=== PATIENT | female | born 1980 | race Caucasian/White ===

== ENCOUNTER 2019-10-22 08:31 | Emergency (ER) | payer BC, MEDICAID ==
[~2019-10-22] VITALS: Ht 165 cm; Wt 138.4 kg
[~2019-10-22 08:31] MED LIST: AMOX500C2 PO; GFCD10B PO; NAPR-243 PO; OMEP10CA2
[2019-10-22] MEDS ORDERED: HYDR-3820 (08:52)
[2019-10-22 08:59] LABS: BILIRUBIN,URINE NEGATIVE (NEGATIVE); CLARITY,URINE CLEAR; COLOR,URINE YELLOW; GLUCOSE, URINE (UA) NEGATIVE (NEGATIVE); KETONES,URINE NEGATIVE (NEGATIVE); LEUKOCYTE ESTERASE ,URINE NEGATIVE (NEGATIVE); NITRITE,URINE NEGATIVE (NEGATIVE); PROTEIN,URINE NEGATIVE (NEGATIVE)
[2019-10-22 09:22] LABS: BACTERIA,URINE FEW /HPF; RBC,URINE 0-2 /HPF
--- NOTE | 2019-10-22 09:25 | ED Abdominal Pain ---
General Chief Complaint: Abdominal/GI Problems Stated Complaint: LOWER L SIDE PAIN Nursing Triage Note: LEFT UPPER ABD PAIN WITH NAUSEA STARTING YESTERDAY. Sepsis Screen: No Definite Risk Source of Information: Patient Exam Limitations: No Limitations History of Present Illness Date Seen by Provider: Oct 22, 2019 Time Seen by Provider: 08:33 Initial Comments This 38-year-old woman presents to the emergency room with complaints of left upper quadrant and flank pain. This is associated with nausea. These symptoms began fairly suddenly yesterday. Pain is worse with deep breathing and coughing. She is tender to palpation. She has tried applying heat and ice without benefit. She took Tylenol, ibuprofen, and Flexeril which were not very helpful. She denies any constipation or diarrhea. Last bowel movement was last night and was normal. Last menstrual period was October 01. She has had upper respiratory symptoms including cough, congestion, and sinus symptoms since mid August. She completed a course of azithromycin but still has symptoms. She is afebrile. She denies any urinary changes. Allergies and Home Medications Allergies Coded Allergies: No Known Allergies (Unverified Allergy, Mild, 08/30/09) Patient Home Medication List Home Medication List Reviewed: Yes Review of Systems Review of Systems Constitutional: no symptoms reported EENTM: No Symptoms Reported Respiratory: See HPI Cardiovascular: No Symptoms Reported Gastrointestinal: See HPI Genitourinary: No Symptoms Reported Musculoskeletal: no symptoms reported Skin: no symptoms reported Psychiatric/Neurological: No Symptoms Reported Endocrine: No Symptoms Reported Hematologic/Lymphatic: No Symptoms Reported Past Ulpbayf-Qbdpmj-Nllzzj Hx Past Med/Social Hx: Reviewed Nursing Past Med/Soc Hx Patient Social History Alcohol Use: Denies Use Recreational Drug Use: No Smoking Status: Never a Smoker Recent Foreign Travel: No Contact w/Someone Who Travel: No Recent Infectious Disease Expo: No Recent Hopitalizations: No Seasonal Allergies Seasonal Allergies: No Past Medical History Surgeries: Yes Section, Gallbladder, Orthopedic Respiratory: No Cardiac: No Neurological: No : No Last Menstrual Period: Oct 01, 2019 Genitourinary: No Gastrointestinal: No Musculoskeletal: No Endocrine: No HEENT: No Cancer: No Psychosocial: No Integumentary: No Physical Exam Vital Signs Vital Signs - First Documented 10/22/19 08:33 Temp 36.5 Pulse 89 Resp 16 B/P (MAP) 148/106 (120) Pulse Ox 99 O2 Delivery Room Air Capillary Refill : Less Than 3 Seconds Height/Weight/BMI Height: '" Weight: lbs. oz. 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, no motor/sensory deficits, alert, normal mood/affect, oriented x 3 Skin: normal color, warm/dry Progress/Results/Core Measures Results/Orders Lab Results Laboratory Tests Test 10/22/19 08:50 10/22/19 10:20 Range/Units Urine Color YELLOW Urine Clarity CLEAR Urine pH 6.0 5-9 Urine Specific [place] 1.025 H 1.016-1.022 Urine Protein NEGATIVE NEGATIVE Urine Glucose (UA) NEGATIVE NEGATIVE Urine Ketones NEGATIVE NEGATIVE Urine Nitrite NEGATIVE NEGATIVE Urine Bilirubin NEGATIVE NEGATIVE Urine Urobilinogen 0.2 < = 1.0 MG/DL Urine Leukocyte Esterase NEGATIVE NEGATIVE Urine RBC (Auto) TRACE-I NEGATIVE Urine RBC 0-2 /HPF Urine WBC NONE /HPF Urine Squamous Epithelial Cells 10-25 H /HPF Urine Crystals NONE /LPF Urine Bacteria FEW H /HPF Urine Casts NONE /LPF Urine Mucus SMALL H /LPF Urine Culture Indicated NO White Blood Count 12.7 H 4.3-11.0 10^3/uL Red Blood Count 4.85 4.35-5.85 10^6/uL Hemoglobin 12.4 11.5-16.0 G/DL Hematocrit 39 35-52 % Mean Corpuscular Volume 81 80-99 FL Mean Corpuscular Hemoglobin 26 25-34 PG Mean Corpuscular Hemoglobin Concent 32 32-36 G/DL Red Cell Distribution Width 18.1 H 10.0-14.5 % Platelet Count 368 130-400 10^3/uL Mean Platelet Volume 9.8 7.4-10.4 FL Neutrophils (%) (Auto) 74 42-75 % Lymphocytes (%) (Auto) 17 12-44 % Monocytes (%) (Auto) 7 0-12 % Eosinophils (%) (Auto) 2 0-10 % Basophils (%) (Auto) 1 0-10 % Neutrophils # (Auto) 9.4 H 1.8-7.8 X 10^3 Lymphocytes # (Auto) 2.1 1.0-4.0 X 10^3 Monocytes # (Auto) 0.9 0.0-1.0 X 10^3 Eosinophils # (Auto) 0.2 0.0-0.3 10^3/uL Basophils # (Auto) 0.1 0.0-0.1 10^3/uL Sodium Level 139 135-145 MMOL/L Potassium Level 4.4 3.6-5.0 MMOL/L Chloride Level 107 98-107 MMOL/L Carbon Dioxide Level 21 21-32 MMOL/L Anion Gap 11 5-14 MMOL/L Blood Urea Nitrogen 9 7-18 MG/DL Creatinine 0.74 0.60-1.30 MG/DL Estimat Glomerular Filtration Rate > 60 BUN/Creatinine Ratio 12 Glucose Level 158 H 70-105 MG/DL Calcium Level 9.1 8.5-10.1 MG/DL Corrected Calcium 9.1 8.5-10.1 MG/DL Total Bilirubin 0.3 0.1-1.0 MG/DL Aspartate Amino Transf (AST/SGOT) 12 5-34 U/L Alanine Aminotransferase (ALT/SGPT) 19 0-55 U/L Alkaline Phosphatase 59 40-136 U/L C-Reactive Protein High Sensitivity 0.84 H 0.00-0.50 MG/DL Total Protein 7.2 6.4-8.2 GM/DL Albumin 4.0 3.2-4.5 GM/DL Lipase 18 8-78 U/L My Orders Orders - LOLIS TEJADA MD Ua Culture If Indicated (10/22/19 08:33) Ondansetron Oral Dissolve Tab (Zofran (10/22/19 09:30) Lidocaine 2% Viscous 15 Ml (Xylocaine Vi (10/22/19 09:30) Antacid Suspension (Mylanta Suspension (10/22/19 09:30) Chest Pa/Lat (2 View) (10/22/19 10:09) Cbc With Automated Diff (10/22/19 10:09) Comprehensive Metabolic Panel (10/22/19 10:09) Hs C Reactive Protein (10/22/19 10:09) Lipase (10/22/19 10:09) Ed Iv/Invasive Line Start (10/22/19 10:09) Ketorolac Injection (Toradol Injection) (10/22/19 10:30) Medications Given in ED Current Medications Medications Dose Ordered Sig/Stan Route Start Time Stop Time Status Last Admin Dose Admin Al Hydrox/Mg Hydrox/Simethicone 30 ml ONCE ONCE PO 10/22/19 09:30 10/22/19 09:31 DC 10/22/19 09:46 30 ML Ketorolac Tromethamine 30 mg ONCE ONCE IVP 10/22/19 10:30 10/22/19 10:31 DC 10/22/19 10:30 30 MG Lidocaine HCl 15 ml ONCE ONCE PO 10/22/19 09:30 10/22/19 09:31 DC 10/22/19 09:46 15 ML Ondansetron HCl 8 mg ONCE ONCE SL 10/22/19 09:30 10/22/19 09:31 DC 10/22/19 09:30 8 MG Vital Signs/I&O 10/22/19 08:33 Temp 36.5 Pulse 89 Resp 16 B/P (MAP) 148/106 (120) Pulse Ox 99 O2 Delivery Room Air Blood Pressure Mean: 120 Progress Progress Note #1: Time: 10:24 Progress Note Patient was treated with sublingual Zofran followed by GI cocktail. Unfortunately this did not improve her symptoms at all. We are proceeding with further workup including chest x-ray and lab work. Progress Note #2: Time: 11:09 Progress Note Patient had a mild leukocytosis but workup was otherwise unremarkable. I discussed further options with patient including plain film x-rays versus CT scan versus watchful waiting. Patient wishes to return home and monitor her symptoms without any further workup at this time. We discussed risks and benefits of imaging studies patient made her decision after this discussion. She states Toradol helped her pain significantly. Her pain is now rated around 3 out of 10, improved from 9 out of 10. Diagnostic Imaging Diagonstic Imaging: Xray Plain Films/CT/US/NM/MRI: chest Comments Chest x-ray viewed by me and report reviewed. See report below: NAME: KIRTI FRENCH [facility] REC#: [id number] PT STATUS: REG ER : 1980 PHYSICIAN: LOLIS TEJAAD MD ADMIT DATE: 10/22/19/ER Draft Date of Exam:10/22/19 CHEST PA/LAT (2 VIEW) INDICATION: Cough and cold. TIME OF EXAM: 10:43 a.m. COMPARISON: Correlation is made with prior chest from 08/30/2009. FINDINGS: The heart size is normal. The pulmonary vascularity is unremarkable. The lungs are clear. No infiltrate, effusion or pneumothorax is detected. IMPRESSION: No acute cardiopulmonary process is detected. Dictated on workstation # [id number] Dict: 10/22/19 1044 Trans: 10/22/19 1048 [facility] [id number] Interpreted by: MO SCOTT MD Departure Impression Primary Impression: Left upper quadrant pain Additional Impression: Cough Disposition: 01 HOME, SELF-CARE Condition: Improved Departure-Patient Inst. Decision time for Depature: 11:11 Referrals: NAM HAIDER APRN (PCP) Primary Care Physician Patient Instructions: Acute Abdomen (Belly Pain), Adult (DC) Add. Discharge Instructions: Drink plenty of clear liquids. Adhere to a clear liquid diet for the remainder of the day. Then gradually advance your diet with small quantities of bland food as tolerated. For pain take Tylenol (acetaminophen) up to 1000 mg every 6 hours as needed. Add ibuprofen up to 600 mg every 6 hours as needed for additional pain relief. You may also wish to add an antacid such as Pepcid (famotidine) or omeprazole. Return to care if you have worsening symptoms. Uses Zofran (ondansetron) (as prescribed. Further nausea or vomiting. All discharge instructions reviewed with patient and/or family. Voiced understanding. Scripts Ondansetron (Ondansetron Odt) 4 Mg Tab.rapdis 4 MG SL Q4H PRN for NAUSEA/VOMITING, #10 TAB Prov: LOLIS TEJADA MD 10/22/19 LOLIS TEJADA MD Oct 22, 2019 09:25
[2019-10-22] MEDS ORDERED: LIDOCAINE 2% VISCOUS 15 ML UDC PO ONE (09:30)
[2019-10-22] MEDS ORDERED: ONDANSETRON 4 MG (ZOFRAN) ORAL DISSOLVE TAB SL ONE (09:30)
[2019-10-22] MEDS ORDERED: ANTACID SUSP 30 ML UDC (MYLANTA) PO ONE (09:30)
[2019-10-22] MEDS ORDERED: KETOROLAC 30 MG/ML VIAL IVP ONE (10:30)
[2019-10-22 10:32] LABS: BASOPHILS # (AUTO) 0.1 10^3/uL (0.0-0.1); BASOPHILS % (AUTO) 1 % (0-10); EOSINOPHILS # (AUTO) 0.2 10^3/uL (0.0-0.3); EOSINOPHILS % (AUTO) 2 % (0-10); HEMATOCRIT 39 % (35-52); HEMOGLOBIN 12.4 G/DL (11.5-16.0); LYMPHOCYTES # (AUTO) 2.1 X 10^3 (1.0-4.0); LYMPHOCYTES % (AUTO) 17 % (12-44); MEAN CORPUSCULAR HEMOGLOBIN 26 PG (25-34); MEAN CORPUSCULAR HGB CONC 32 G/DL (32-36); MEAN CORPUSCULAR VOLUME 81 FL (80-99); MEAN PLATELET VOLUME 9.8 FL (7.4-10.4); MONOCYTES # (AUTO) 0.9 X 10^3 (0.0-1.0); MONOCYTES % (AUTO) 7 % (0-12); NEUTROPHILS # (AUTO) 9.4 X 10^3 (1.8-7.8); NEUTROPHILS % (AUTO) 74 % (42-75); PLATELET COUNT 368 10^3/uL (130-400); RED CELL DISTRIBUTION WIDTH 18.1 % (10.0-14.5); WHITE BLOOD COUNT 12.7 10^3/uL (4.3-11.0)
--- NOTE | 2019-10-22 10:49 | Diagnostic Imaging Report ---
INDICATION: Cough and cold. TIME OF EXAM: 10:43 a.m. COMPARISON: Correlation is made with prior chest from 08/30/2009. FINDINGS: The heart size is normal. The pulmonary vascularity is unremarkable. The lungs are clear. No infiltrate, effusion or pneumothorax is detected. IMPRESSION: No acute cardiopulmonary process is detected. Dictated by: Dictated on workstation # [id number]
[2019-10-22 10:50] LABS: ALANINE AMINOTRANSFERASE 19 U/L (0-55); ALKALINE PHOSPHATASE 59 U/L (40-136); BILIRUBIN,TOTAL 0.3 MG/DL (0.1-1.0); BUN/CREATININE RATIO 12; CALCIUM 9.1 MG/DL (8.5-10.1); CARBON DIOXIDE 21 MMOL/L (21-32); CHLORIDE 107 MMOL/L (98-107); CREATININE SERUM 0.74 MG/DL (0.60-1.30); GFR ESTIMATED > 60; GLUCOSE 158 MG/DL (70-105); LIPASE 18 U/L (8-78); POTASSIUM 4.4 MMOL/L (3.6-5.0); SODIUM 139 MMOL/L (135-145); TOTAL PROTEIN 7.2 GM/DL (6.4-8.2)
--- NOTE | 2019-10-22 10:58 | NUR ---
REPORT GIVEN TO ADIEL
[2019-10-22] MEDS ORDERED: ONDA4TAB11 SL (11:16)
[2019-10-22 11:27] VITALS: BP 147/84
== END 2019-10-22 11:27 | disposition home or self-care (01) ==
LOC: EDUNIT# 08:31 → ER 08:32
DX: R10.12 Left upper quadrant pain (principal); R05 Cough
CPT/HCPCS: 36415; 71046; 80053; 81000; 83690; 84703; 85025; 86141; 96374

== ENCOUNTER → 2022-05-24 | Outpatient (CLI) | payer OTHER ==
[~2022-05-24] MED LIST changes: +ACHYD1T; +ONDA4TAB11 SL
--- NOTE | 2022-05-24 17:46 | Diagnostic Imaging Report ---
Indication: Abnormal mammogram. Correlation is made with outside mammogram from 05/16/2022. Sonographic interrogation of the left axillary tail region demonstrates an ovoid circumscribed hypoechoic nodule with echogenic center measuring 1.0 x 0.5 x 1.0 cm. This is most consistent with an intraparenchymal lymph node. This has benign features. No concerning sonographic abnormality is seen. IMPRESSION: BI-RADS Category 2 Intraparenchymal lymph node in the region of the axillary tail, corresponding to the mammographic density. ACR BI-RADS Category 2: Benign findings. Result letter will be mailed to the patient. Note: At least 10% of breast cancer is not imaged by mammography. Dictated by: Dictated on workstation # [id number]
== END ==
LOC: RAD 13:15
PROVIDERS: ATTEND Nurse Practitioner Family
DX: R92.8 Other abnormal and inconclusive findings on diagnostic imaging of breast (principal)
CPT/HCPCS: 76641